=== PATIENT | female | born 1965 | race American Indian/Alaskan Native ===

== ENCOUNTER 2016-10-02 08:28 | Emergency (ER) | payer MEDICARE, MEDICAID ==
[~2016-10-02] VITALS: Ht 139.7 cm; Wt 60.8 kg
[~2016-10-02 08:28] MED LIST: ARIP20TA5 PO; BENZ1TAB2 PO; CITA10TA59 PO; DIVA500T4 PO; FENO145T20 PO; FLUT50SP13; HYDR-3682 OR; LORA-154 OR; NIAC500T89 OR; OXYB15TA12 OR; QUET100T38 OR; [UNRECOGNIZED DRUG - CODE] OR
[2016-10-02 08:59] VITALS: BP 116/63
== END 2016-10-02 10:14 | disposition home or self-care (01) ==
LOC: ER 08:31
DX: S00.83XA Contusion of other part of head, initial encounter (principal); Z79.899 Other long term (current) drug therapy; W06.XXXA Fall from bed, initial encounter; Y93.89 Activity, other specified; Y99.8 Other external cause status; Y92.89 Other specified places as the place of occurrence of the external cause

== ENCOUNTER 2017-01-26 10:32 | Emergency (ER) | payer MEDICARE, MEDICAID ==
[~2017-01-26] VITALS: Ht 139.7 cm; Wt 65.8 kg
[~2017-01-26 10:32] MED LIST changes: +ARIP1TAB7 PO; -ARIP20TA5 PO
[2017-01-26 10:52] VITALS: BP 100/50
== END 2017-01-26 11:04 | disposition home or self-care (01) ==
LOC: ER 10:32
DX: R04.0 Epistaxis (principal); Z79.899 Other long term (current) drug therapy

== ENCOUNTER → 2018-09-09 | Day surgery (SDC) | payer MEDICAID, MEDICARE ==
[2018-09-06 10:41] LABS: Basophils # (auto) 0.1 uL; Basophils % (auto) 1.1 % (0.0-2.0); Eosinophils # (auto) 0.1 uL; Eosinophils % (auto) 1.8 % (0.0-7.0); Hematocrit 40.8 % (36.0-46.0); Hemoglobin 13.7 g/dL (12.2-16.2); Lymphocytes # (auto) 2.4 uL; Lymphocytes % (auto) 32.9 % (10.0-50.0); Mean Corpuscular Hemoglobin 31.9 pg (28.0-32.0); Mean Corpuscular Hgb Conc. 33.5 g/dL (32.0-36.0); Mean Corpuscular Volume 95.2 fL (80.0-100.0); Monocytes # (auto) 0.8 uL; Monocytes % (auto) 11.1 % (0.0-12.0); Neutrophils # (auto) 3.9 uL; Neutrophils % (auto) 53.1 % (37.0-80.0); Nucleated Red Blood Cells % 0.2 %; Platelet Count (auto) 185 10^3/uL (140-450); Red Blood Cells 4.28 10^6/uL (4.0-5.20); Red Cell Distribution Width 15.1 % (11.8-14.3); White Blood Cell 7.4 10^3/uL (4.4-10.8)
[2018-09-06 10:42] LABS: Urine Bacteria NONE SEEN /hpf (None Seen); Urine Blood Negative /uL (Negative); Urine Specific Gravity 1.009 (1.001-1.035); Urine WBC 1 /hpf (0 - 5)
[2018-09-06 10:57] LABS: Albumin 3.2 g/dL (3.4-5.0)
[2018-09-06 10:58] LABS: INR 1.01 (0.9-1.15); Partial Thromboplastin Time 26.7 sec (23.78-33.04); Prothrombin Time 10.8 sec (9.27-12.13)
[2018-09-06 11:00] LABS: BUN/Creatinine Ratio 18.2; Bilirubin, Total 0.2 mg/dL (0.2-1.0); Total Protein 7.7 g/dL (6.4-8.2)
[~2018-09-09] VITALS: Ht 124.5 cm; Wt 59.0 kg
[~2018-09-09] MED LIST changes: +ACCU-CHEK COMFORT CURVE STRIP VI ONE; -BENZ1TAB2 PO; +DEXAMETHASONE SOD PHOS 10MG/1ML VIAL INJ ONE; -FENO145T20 PO; -HYDR-3682 OR; +KETOROLAC TROMETH 30 MG/ML 1ML VIAL IV ONE; +LABETALOL HCL 5 MG/ML 4ML SYRINGE IV PRN; +LACTATED RINGER'S 1,000 ML IV SCH; +METF-370 PO; +MIDAZOLAM HCL 1MG/1ML-2 ML VIAL IV PRN; +MIDAZOLAM HCL 1MG/1ML-2 ML VIAL ONE; +MORPHINE SULFATE 4 MG/ML SYR/VIAL IV ONE; +MORPHINE SULFATE 4 MG/ML SYR/VIAL IV PRN; +MULT-17 PO; +ONDANSETRON HCL 4 MG/2 ML VIAL IV ONE; +ONDANSETRON HCL 4 MG/2 ML VIAL IV PRN; +POLYSOL5 EACHEYE; +PROPOFOL 10 MG/ML 20 ML IV ONE; -[UNRECOGNIZED DRUG - CODE] OR; +ceFAZolin 1GM/50ML 50 ML IV ONE; +ePHEDrine SULFATE 50 MG/ML AMP IV PRN
[2018-09-09 10:02] VITALS: BP 121/70
== END | disposition home or self-care (01) ==
LOC: SUR 06:51
PROVIDERS: ATTEND Obstetrics & Gynecology
DX: N88.8 Other specified noninflammatory disorders of cervix uteri (principal); F79 Unspecified intellectual disabilities; E11.9 Type 2 diabetes mellitus without complications; E66.9 Obesity, unspecified; Z68.38 Body mass index [BMI] 38.0-38.9, adult; F41.9 Anxiety disorder, unspecified
CPT/HCPCS: 36415; 57410; 80053; 81001; 82962; 84702; 85025; 85610; 85730; J0690; J1100; J2250; J2704

== ENCOUNTER → 2019-09-20 | Outpatient (CLI) | payer MEDICARE ==
[~2019-09-20] MED LIST changes: -ACCU-CHEK COMFORT CURVE STRIP VI ONE; -DEXAMETHASONE SOD PHOS 10MG/1ML VIAL INJ ONE; -KETOROLAC TROMETH 30 MG/ML 1ML VIAL IV ONE; -LABETALOL HCL 5 MG/ML 4ML SYRINGE IV PRN; -LACTATED RINGER'S 1,000 ML IV SCH; -MIDAZOLAM HCL 1MG/1ML-2 ML VIAL IV PRN; -MIDAZOLAM HCL 1MG/1ML-2 ML VIAL ONE; -MORPHINE SULFATE 4 MG/ML SYR/VIAL IV ONE; -MORPHINE SULFATE 4 MG/ML SYR/VIAL IV PRN; -ONDANSETRON HCL 4 MG/2 ML VIAL IV ONE; -ONDANSETRON HCL 4 MG/2 ML VIAL IV PRN; +POLYSOL2 EACHEYE; -POLYSOL5 EACHEYE; -PROPOFOL 10 MG/ML 20 ML IV ONE; -ceFAZolin 1GM/50ML 50 ML IV ONE; -ePHEDrine SULFATE 50 MG/ML AMP IV PRN
[2019-09-20 10:49] LABS: Follicle Stimulating Hormone 54.14 IU/L (SEE BELOW); Leuteinizing Hormone 23.3 IU/L
== END | disposition home or self-care (01) ==
LOC: LAB 09:45
PROVIDERS: ATTEND Obstetrics & Gynecology
DX: N95.1 Menopausal and female climacteric states (principal); R04.0 Epistaxis; E78.1 Pure hyperglyceridemia
CPT/HCPCS: 36415; 82670; 83001; 83002; 84403; 84443

== ENCOUNTER 2020-01-18 14:09 | Inpatient (IN) | payer MEDICARE ==
[~2020-01-18] VITALS: Ht 139.7 cm; Wt 58.5 kg
[2020-01-18] MEDS ORDERED: GLUCAGON HYDROCHLORIDE (RDNA) 1 MG VIAL IM ONE (14:45)
[2020-01-18] MEDS ORDERED: GASTROGRAFIN 30 ML SOL ONE (16:28)
[2020-01-18] MEDS ORDERED: IOHEXOL 300 MG/ML 100ML BOTTLE IJ ONE (16:29)
[2020-01-18] MEDS ORDERED: SODIUM CHLORIDE LOCK 10 ML ONE (17:04)
[2020-01-18] MEDS ORDERED: diphenhdrAMINE HCL 50 MG/1 ML VL ONE (17:04)
[2020-01-18] MEDS ORDERED: LIDOCAINE VISCOUS 2% 15ML UD ONE (17:04)
[2020-01-18] MEDS ORDERED: MIDAZOLAM HCL 5 MG/ML-1ML VIAL ONE (17:04)
[2020-01-18] MEDS ORDERED: fentaNYL CITRATE 100 MCG/2 ML VL ONE (17:04)
[2020-01-18] MEDS ORDERED: FLUMAZENIL 0.1 MG/ML INJ 10ML MDV IV ONE (17:05)
[2020-01-18] MEDS ORDERED: NALOXONE HCL 0.4 MG/ML VIAL ONE (17:05)
[2020-01-18 17:11] LABS: Basophils # (auto) 0.1 10 ^3/uL (0-0.2); Basophils % (auto) 1.2 % (0.0-2.0); Eosinophils # (auto) 0.1 10 ^3/uL (0-0.8); Eosinophils % (auto) 1.2 % (0.0-7.0); Hematocrit 41.4 % (36.0-46.0); Lymphocytes # (auto) 3.1 10 ^3/uL (0.4-5.4); Lymphocytes % (auto) 34.4 % (10.0-50.0); Mean Corpuscular Hemoglobin 31.8 pg (28.0-32.0); Mean Corpuscular Hgb Conc. 33.9 g/dL (32.0-36.0); Mean Corpuscular Volume 93.7 fL (80.0-100.0); Monocytes # (auto) 0.8 10 ^3/uL (0-1.3); Monocytes % (auto) 9.4 % (0.0-12.0); Neutrophils # (auto) 4.8 10 ^3/uL (1.6-8.6); Neutrophils % (auto) 53.8 % (37.0-80.0); Nucleated Red Blood Cells % 0.1 %; Platelet Count (auto) 202 10^3/uL (140-450); Red Blood Cells 4.42 10^6/uL (4.0-5.20); Red Cell Distribution Width 13.8 % (11.8-14.3); White Blood Cell 8.9 10^3/uL (4.4-10.8)
[2020-01-18 17:21] LABS: Albumin 3.3 g/dL (3.4-5.0); BUN/Creatinine Ratio 29.6; Calcium 8.4 mg/dL (8.5-10.1); Potassium 3.5 mmol/L (3.5-5.1)
[2020-01-18 17:23] LABS: Bilirubin, Total 0.2 mg/dL (0.2-1.0); Total Protein 8.1 g/dL (6.4-8.2)
[2020-01-18 17:30] LABS: INR 1.04 (0.9-1.15); Partial Thromboplastin Time 29.6 sec (23.64-32.05)
[2020-01-18] MEDS ORDERED: NITROGLYCERIN 0.4 MG SL TAB SL PRN ×2 (18:15→23:00)
[2020-01-18] MEDS ORDERED: MORPHINE SULF INJ 2 MG/ML SYRINGE 1ML IV PRN ×3 (18:15→23:00)
--- NOTE | 2020-01-18 20:00 | NUR ---
arrival note arrived via wheelchair. pt is accompanied by aerodynamics teacher, and aerodynamics teacher will remain present at the bedside. pt is alert to self. 18g at right forearm. respirations even and nonlabored on 2lnc. pt is s/p EGD.
[2020-01-18 22:00] VITALS: BP 105/65
[2020-01-18] MEDS ORDERED: PIPERACILLIN-TAZOB 3.375GM 100 ML IV ONE (23:00)
[2020-01-18] MEDS ORDERED: HYDROcodone-ACET 5/325MG TAB PO PRN (23:00)
[2020-01-18] MEDS ORDERED: LORATADINE 10 MG TAB PO ONE (23:00)
[2020-01-18] MEDS ORDERED: FUROSEMIDE 20 MG/2 ML VIAL IV ONE (23:00)
[2020-01-18] MEDS ORDERED: DEXTROSE (50%) 50ML SYRG IV PRN (23:00)
[2020-01-18] MEDS ORDERED: ALUM & MAG HYDROX-SIMETH LIQ(MAALOX) 30 ML PO PRN (23:00)
[2020-01-18] MEDS ORDERED: LORazepam 0.5 MG TAB PO PRN (23:00)
[2020-01-18] MEDS ORDERED: ONDANSETRON HCL 4 MG/2 ML VIAL IV PRN (23:00)
[2020-01-18] MEDS ORDERED: DOCUSATE SOD 100 MG CAP PO PRN (23:00)
[2020-01-18] MEDS: SODIUM CHLORIDE 0.9% 1,000 ML IV SCH (23:45)
--- NOTE | 2020-01-19 01:00 | NUR ---
iv insertion 22g placed at left AC, one attempt. Pt tolerated very well.
[2020-01-19 05:00] VITALS: BP 130/60
[2020-01-19] MEDS ORDERED: FUROSEMIDE 20 MG/2 ML VIAL IV SCH (06:00)
[2020-01-19 06:10] LABS: Basophils # (auto) 0.1 10 ^3/uL (0-0.2); Basophils % (auto) 1.2 % (0.0-2.0); Eosinophils # (auto) 0.1 10 ^3/uL (0-0.8); Eosinophils % (auto) 1.6 % (0.0-7.0); Hematocrit 42.9 % (36.0-46.0); Hemoglobin 14.2 g/dL (12.2-16.2); Lymphocytes # (auto) 3.4 10 ^3/uL (0.4-5.4); Lymphocytes % (auto) 41.7 % (10.0-50.0); Mean Corpuscular Hemoglobin 31.1 pg (28.0-32.0); Mean Corpuscular Hgb Conc. 33.1 g/dL (32.0-36.0); Monocytes # (auto) 0.9 10 ^3/uL (0-1.3); Monocytes % (auto) 10.8 % (0.0-12.0); Neutrophils # (auto) 3.7 10 ^3/uL (1.6-8.6); Neutrophils % (auto) 44.7 % (37.0-80.0); Nucleated Red Blood Cells % 0.1 %; Platelet Count (auto) 204 10^3/uL (140-450); Red Blood Cells 4.57 10^6/uL (4.0-5.20); Red Cell Distribution Width 14.1 % (11.8-14.3); White Blood Cell 8.2 10^3/uL (4.4-10.8)
[2020-01-19 06:15] LABS: Albumin 3.5 g/dL (3.4-5.0); Calcium 8.8 mg/dL (8.5-10.1); Magnesium 2.7 mg/dL (1.6-2.6); Potassium 3.6 mmol/L (3.5-5.1)
[2020-01-19 06:17] LABS: BUN/Creatinine Ratio 19.6
[2020-01-19 06:20] LABS: Bilirubin, Total 0.4 mg/dL (0.2-1.0); Phosphorus 4.9 mg/dL (2.5-4.90); Total Protein 8.3 g/dL (6.4-8.2)
[2020-01-19 06:22] LABS: INR 1.02 (0.9-1.15)
[2020-01-19] MEDS: SODIUM CHLORIDE 0.9% 1,000 ML IV SCH ×2 (06:33→12:19)
[2020-01-19] MEDS: PIPERACILLIN-TAZOB 3.375GM 100 ML IV SCH ×2 (06:34→12:19)
[2020-01-19 06:45] LABS: Cholesterol 203 mg/dL (< 200); HDL Cholesterol 76 mg/dL (40-59); LDL Cholesterol 109 mg/dL (< 100); Triglycerides 145 mg/dL (< 150)
[2020-01-19] MEDS: InsuLIN REG 1unit/0.01ml Soln (100units/ml) SC SCH ×2 (06:54→12:17)
[2020-01-19] MEDS: ACCU-CHEK COMFORT CURVE STRIP VI SCH ×2 (06:54→12:18)
--- NOTE | 2020-01-19 06:59 | NUR ---
closing note pt awake, alert to self. impregnator operator at bedside. pt is comfortable. respirations even and nonlabored on room air. bed in low locked position, call light within reach.
[2020-01-19] MEDS ORDERED: ENOXAPARIN SOD 40 MG/0.4 ML SYRINGE SC SCH (10:00)
[2020-01-19] MEDS ORDERED: LORATADINE 10 MG TAB PO SCH (10:00)
[2020-01-19] MEDS ORDERED: PANTOPRAZOLE 40 MG/10 ML VIAL INJ IV SCH (10:00)
[2020-01-19] MEDS ORDERED: OXYBUTYNIN CHL 5 MG TAB PO SCH (10:00)
[2020-01-19] MEDS ORDERED: CITALOPRAM HYDROBR 20 MG TAB PO SCH (10:00)
[2020-01-19] MEDS ORDERED: FLUTICASONE PROP NASAL SPR 0.05 % (50MCG) 16GM SCH (10:00)
[2020-01-19 10:26] LABS: Urine Bacteria FEW /hpf (None Seen); Urine Blood Negative /uL (Negative); Urine Hyaline Cast FEW /lpf (0 - 2); Urine Specific Gravity 1.007 (1.001-1.035); Urine WBC <1 /hpf (0 - 5)
[2020-01-19] MEDS ORDERED: PANT40TA2 PO (12:28)
[2020-01-19 13:00] VITALS: BP 123/69
[2020-01-19 13:36] VITALS: BP 130/60
--- NOTE | 2020-01-19 14:10 | NUR ---
Discharge instructions given as ordered. Encourage to follow up with PMD with Dr. Domonique Villagomez in 1-2 weeks Address : [address] [place] [address] [address], [place] [address] #[phone] as instructed. All questions and concerns addressed. Patient verbalized understanding. Medication reconciliation form completed and copy given to patient. IV removed with catheter intact, pressure dressing applied. Telemetry unit returned to ICU. Patient taken to vehicle via wheelchair with all personal belongings, accompanied by staff and family member. No distress noted at time of departure.
[2020-01-19] MEDS ORDERED: InsuLIN REG 1unit/0.01ml Soln (100units/ml) SC SCH (22:00)
[2020-01-19] MEDS ORDERED: QUEtiapine FUMARATE 100 MG TAB PO SCH (22:00)
== END 2020-01-19 14:10 | disposition home or self-care (01) | DRG 394 ==
LOC: ER 14:09 → TELE 14:10 → TELE-CENTR 20:00
PROVIDERS: ADMIT Hospitalist; ATTEND Internal Medicine
PROC: 0DC18ZZ Extirpation of Matter from Upper Esophagus, Via Natural or Artificial Opening Endoscopic (ICD-10-PCS; principal; 2020-01-18 17:45)
DX: T18.128A Food in esophagus causing other injury, initial encounter (principal); E44.0 Moderate protein-calorie malnutrition; F41.9 Anxiety disorder, unspecified; E66.9 Obesity, unspecified; F32.9 Major depressive disorder, single episode, unspecified; K29.70 Gastritis, unspecified, without bleeding; Z68.30 Body mass index [BMI] 30.0-30.9, adult; E11.9 Type 2 diabetes mellitus without complications; E78.1 Pure hyperglyceridemia; E78.5 Hyperlipidemia, unspecified; G40.909 Epilepsy, unspecified, not intractable, without status epilepticus; Q90.9 Down syndrome, unspecified; Z79.899 Other long term (current) drug therapy; Z79.84 Long term (current) use of oral hypoglycemic drugs; F79 Unspecified intellectual disabilities; X58.XXXA Exposure to other specified factors, initial encounter; Y93.G3 Activity, cooking and baking; Y92.89 Other specified places as the place of occurrence of the external cause; Y99.8 Other external cause status
CPT/HCPCS: 36415; 43247; 70360; 70491; 80053; 80061; 81001; 82962; 83036; 83735; 84100; 84484; 85025; 85610; 85730; 87040; 87086; 96372; 99291; C9113; G0378; J1815; J2250; J2543

== ENCOUNTER 2020-08-24 11:25 | Emergency (ER) | payer MEDICARE, MEDICAID ==
[~2020-08-24] VITALS: Ht 139.7 cm; Wt 83.0 kg
[~2020-08-24 11:25] MED LIST changes: -CITA10TA59 PO; +CITA10TA8 PO; +PANT40TA2 PO
[2020-08-24 11:27] VITALS: BP 132/53
== END 2020-08-24 13:58 | disposition home or self-care (01) ==
LOC: ER 11:25
DX: J03.90 Acute tonsillitis, unspecified (principal); H66.93 Otitis media, unspecified, bilateral; Z20.822 Contact with and (suspected) exposure to COVID-19
CPT/HCPCS: 36415; 71045; 87426

== ENCOUNTER 2021-01-11 20:17 | Emergency (ER) | payer MEDICARE, MEDICAID ==
[~2021-01-11] VITALS: Ht 139.7 cm; Wt 61.7 kg
[~2021-01-11 20:17] MED LIST changes: -LORA-154 OR; +LORA-483 OR; +MULT-16 PO; -MULT-17 PO
[2021-01-11 23:17] VITALS: BP 139/80
== END 2021-01-11 23:38 | disposition home or self-care (01) ==
LOC: ER 20:17
DX: S80.02XA Contusion of left knee, initial encounter (principal); M25.462 Effusion, left knee; R29.2 Abnormal reflex; W01.0XXA Fall on same level from slipping, tripping and stumbling without subsequent striking against object, initial encounter; Y93.89 Activity, other specified; Y92.89 Other specified places as the place of occurrence of the external cause; Y99.8 Other external cause status
CPT/HCPCS: 29505; 73562